=== PATIENT | female | born 1995 | race Caucasian/White ===

== ENCOUNTER 2023-06-24 10:28 | Outpatient (CLI) | payer BC, SELFPAY ==
[2023-06-24] VITALS (9 sets, daily range): BP systolic 98–124; BP diastolic 59–87; PULSE 82–100
[2023-06-24 11:23] LABS: Basophils Percent Auto 0.3 % (0.2-1.2); Eosinophils Percent Auto 0.4 % (0-4.4); Hematocrit 31.7 % (37.0-47.0); Hemoglobin 10.5 g/dL (12.0-15.0); Immature Granulocyte Absolute 0.05 K/mm3 (0.00-0.031); Immature Granulocyte Percent A 0.5 % (0-0.5); Lymphocytes Absolute Auto 2.05 K/mm3 (0.9-3.2); Lymphocytes Percent Auto 18.6 % (18.3-44.2); Mean Corpuscular HGB Conc 33.1 g/dl (32-36); Mean Corpuscular Hemoglobin 30.4 pg (26-34); Mean Corpuscular Volume 91.9 fl (80-100); Mean Platelet Volume 9.6 fl (7.4-10.4); Monocytes Absolute Auto 0.5 K/mm3 (0.1-0.6); Monocytes Percent Auto 4.3 % (2.6-8.5); Neutrophils Absolute Auto 8.4 K/mm3 (1.3-6.7); Neutrophils Percent Auto 75.9 % (45.5-73.1); Platelet Count Result 265 k/mm3 (150-375); Red Blood Count 3.45 M/mm3 (4.2-5.4); Red Cell Distribution Width 13.7 % (11.5-14.5)
--- NOTE | 2023-06-24 11:38 | PC.NURSE ---
1138: Gestational age not appropriate for NST. heart tone baseline 145.
[2023-06-24 11:39] LABS: Alanine Aminotransferase 11 U/L (6-35); Albumin Level 3.7 g/dL (3.5-5.1); Alkaline Phosphatase 71 U/L (38-126); Anion Gap 7 mmol/L (4-12); Aspartate Amino Transferase 14 U/L (14-36); Bilirubin,Total 0.4 mg/dL (0.2-1.3); Blood Urea Nitrogen 7 mg/dL (7-17); Calcium 9.2 mg/dL (8.4-10.2); Carbon Dioxide 21 mmol/L (22-30); Chloride 108 mmol/L (98-107); Estimated Glomerular Filt Rate > 60; Glucose 92 mg/dL (65-110); Potassium 3.8 mmol/L (3.4-5.0); Sodium 136 mmol/L (137-145); Uric Acid 5.1 mg/dL (2.5-7.5)
[2023-06-24 11:41] LABS: Appearance Urine Cloudy (Clear); Bacteria Urine 4+ /hpf; Bilirubin Urine Negative (Negative); Blood Urine Negative (Negative); Color Urine Yellow (Yellow); Glucose Urine UA Negative (Negative); Ketones Urine Trace mg/dL (Negative); Leukocyte Esterase Ur Trace LEU/UL (Negative); Need Manual Microscopic Reviewed; Nitrate Urine Negative (Negative); Non Pathogenic Casts 0-2; Protein Urine Negative (Negative); RBC Urine 0-2 /hpf (0-2); Specific Grav Ur 1.021 (1.001-1.035); Squamous Epithelial Cell Urine Few /hpf (Few); Urobilinogen Urine 0.2 mg/dL (<2.0); WBC Urine 21-50 /hpf (0-3)
[2023-06-24 11:42] LABS: Add Urine Microscopic? YES
[2023-06-24 12:09] LABS: Creatinine Urine 167.4 mg/dL; Total Protein Urine Random 7 mg/dL; Ur Ttl Prot Creatinine Ratio 0.04 mg/mg (0-0.20)
--- NOTE | 2023-06-24 12:17 | PC.NURSE ---
1217: RN notified CNM of patient's complaints of HERNANDEZ, and swelling. RN reported blood pressures and lab results. Orders to give 1 g of Tylenol for a HERNANDEZ and discharge patient home with instructions on when to return to the hospital.
[2023-06-24] MEDS: ACETAMINOPHEN 500 MG TABLET 1000 MG PO (12:31)
== END 2023-06-24 12:35 ==
LOC: ANHOBOP 10:34 → ANHOBPP 10:37
PROVIDERS: Advanced Practice Midwife; PCP Physician Assistant Medical; Visit Provider Obstetrics & Gynecology
DX: O13.9 Gestational [pregnancy-induced] hypertension without significant proteinuria, unspecified trimester (principal); Z3A.00 Weeks of gestation of pregnancy not specified
CPT/HCPCS: 36415; 80053; 81001; 82570; 84156; 84550; 85025; 87086; 99199; A9270

== ENCOUNTER 2023-10-05 00:01 | Inpatient (IN) | payer BC, SELFPAY ==
[2023-10-05] VITALS (108 sets, daily range): BP systolic 70–143; BP diastolic 43–119; PULSE 74–130; RESP 16–18; TEMP 36.5–36.8; O2SAT 94–100; BMI 42.3
--- OUTSIDE RECORDS SUMMARY | 2023-10-05 00:05 | XMS_ITS | Patient Health Record ---
Author Name Unknown Organization [facility] Planning Address [address] [place] [id number] Care Team Providers Care Welder Production Line Arc Name Role Phone Shefali Spann Primary Care Provider [phone] Reason For Referral No Information Medications Medication SIG (Take, Route, Frequency, Duration) Notes Start Date End Date Status Baby Aspirin Active Social History Tobacco Use: Social History Observation Description Date Details (start date - stop date) Never Smoker NA - NA Tobacco Use/Smoking Question Answer Notes Are you a nonsmoker Alcohol Screen (Audit-C) Question Answer Notes Did you have a drink containing alcohol in the p ast year? No Points 0 Interpretation Negative Plan Of Treatment No Information Insurance Providers Payer Name Payer Address Payer Phone Subscriber Number Group Number Insured Name Patient Relationship to Insured Coverage Start Date Coverage End Date [facility] [id number] [place] [phone] [id number] Bita Barroso Self - patient is the insured 2019
[2023-10-05 00:35] LABS: Basophils Percent Auto 0.2 % (0.2-1.2); Eosinophils Absolute Auto 0.1 K/mm3 (0-0.3); Eosinophils Percent Auto 0.6 % (0-4.4); Hematocrit 37.1 % (37.0-47.0); Hemoglobin 12.8 g/dL (12.0-15.0); Immature Granulocyte Absolute 0.06 K/mm3 (0.00-0.031); Immature Granulocyte Percent A 0.7 % (0-0.5); Lymphocytes Absolute Auto 2.31 K/mm3 (0.9-3.2); Lymphocytes Percent Auto 25.6 % (18.3-44.2); Mean Corpuscular HGB Conc 34.5 g/dl (32-36); Mean Corpuscular Hemoglobin 30.7 pg (26-34); Mean Platelet Volume 9.9 fl (7.4-10.4); Monocytes Absolute Auto 0.4 K/mm3 (0.1-0.6); Monocytes Percent Auto 4.6 % (2.6-8.5); Neutrophils Absolute Auto 6.2 K/mm3 (1.3-6.7); Neutrophils Percent Auto 68.3 % (45.5-73.1); Platelet Count Result 213 k/mm3 (150-375); Red Blood Count 4.17 M/mm3 (4.2-5.4)
[2023-10-05 00:43] LABS: Uric Acid 5.8 mg/dL (2.5-7.5)
[2023-10-05 00:47] LABS: Alanine Aminotransferase 14 U/L (6-35); Alkaline Phosphatase 141 U/L (38-126); Anion Gap 12 mmol/L (4-12); Aspartate Amino Transferase 22 U/L (14-36); Bilirubin,Total 0.2 mg/dL (0.2-1.3); Blood Urea Nitrogen 9 mg/dL (7-17); Calcium 9.5 mg/dL (8.4-10.2); Carbon Dioxide 18 mmol/L (22-30); Chloride 104 mmol/L (98-107); Estimated Glomerular Filt Rate > 60; Glucose 140 mg/dL (65-110); Potassium 3.7 mmol/L (3.4-5.0); Sodium 134 mmol/L (137-145)
[2023-10-05] MEDS: LACTATED RINGERS 1,000 ML 125 ML IV CONT ×2 (00:52→19:39)
[2023-10-05] MEDS: AMPICILLIN 2 GM/NS 100 ML 2 GM/100 ML BAG IVPB (00:53)
[2023-10-05] MEDS: miSOPROStol 25 MCG TABLET 50 MCG VAGINAL ×3 (00:56→11:02)
--- NOTE | 2023-10-05 00:58 | LDADM ---
This patient, Bita Barroso, was admitted to Labor/Delivery/Recovery 107 on 10/05/23 at 00:01. Plans for labor, pain management and were discussed with patient. Patient/family oriented to hospital policies and general routines including ID bracelet, bed and alarms, visiting hours, pain management, procedures, bathroom and other care routines, personal items, smoking policy, room service/diet and guest tray routines, infant security routines, and visiting hours. Patient/Family are encouraged to report perceived risks to care and to ask questions if they do not understand what they are told or what they should do. See OBIX for further documentation.
[2023-10-05 01:30] LABS: HIV 1/2 Ab P24 Ag Result Negative (Negative)
[2023-10-05 03:26] LABS: Rapid Plasma Reagin Non-Reactive (NonReactive)
[2023-10-05] MEDS: AMPICILLIN 1 GM/NS 50 ML 1 GM/50 ML BAG IVPB ×4 (04:50→17:25)
[2023-10-05 07:05] LABS: Glucose Point of Care 108 mg/dl (65-105)
[2023-10-05 09:51] LABS: Glucose Point of Care 102 mg/dl (65-105)
--- NOTE | 2023-10-05 10:58 | WPDOBADMIT ---
Obstetrics - Admit Note Admission Note: record reviewed. No pertinent additions to the history and/or any subsequent changes in the physical findings that are not consistent with the expected course of the were found. Additions to the history and/or subsequent changes in the physical findings follow. IOL, history of protein C deficiency, GDMA-2, SVE /-2, anticipate vaginal delivery
[2023-10-05 12:48] LABS: Glucose Point of Care 104 mg/dl (65-105)
--- NOTE | 2023-10-05 16:01 | WPDANESEPP ---
Anes - Eval Pre Procedure Procedure: labor epidural Date/Time: 10/05/23 16:01 Preop Diagnosis: labor pain Pre Op Diagnosis: IOL Patient Data Age: 28 Gender: F Height: 1.63 m Weight: 112 kg Last Vital Signs Temp 36.7 C 10/05/23 12:41 Pulse 112 H 10/05/23 15:01 Resp 18 10/05/23 12:41 BP 124/84 10/05/23 15:01 Pulse Ox 94 10/05/23 15:59 O2 Del Method Room Air 10/05/23 00:58 Allergies Allergy/AdvReac Type Severity Reaction Status Date / Time No Known Allergies Allergy Verified 09/21/23 12:10 Home Medications Medication Instructions Recorded Confirmed Type multivitamin 1 tablet PO DAILY 02/28/22 09/21/23 History aspirin 81 mg chewable tablet 81 mg PO DAILY 09/21/23 09/21/23 History ferrous sulfate 325 mg (65 mg 325 mg PO DAILY 09/21/23 09/21/23 History iron) tablet heparin (porcine) 10,000 unit/mL 10,000 unit subcut BID 09/21/23 09/21/23 History injection solution insulin NPH isoph U-100 human 100 13 unit subcut HS 09/21/23 09/21/23 History unit/mL subcutaneous cartridge Laboratory Tests 10/05/23 10/05/23 10/05/23 00:26 07:00 09:47 WBC 9.0 K/mm3 (4.5-10.0) RBC 4.17 L M/mm3 (4.2-5.4) Hgb 12.8 g/dL (12.0-15.0) Hct 37.1 % (37.0-47.0) MCV 89.0 fl (80-100) MCH 30.7 pg (26-34) MCHC 34.5 g/dl (32-36) RDW 14.0 % (11.5-14.5) Plt Count 213 k/mm3 (150-375) MPV 9.9 fl (7.4-10.4) Immature Gran % (Auto) 0.7 H % (0-0.5) Neut % (Auto) 68.3 % (45.5-73.1) Lymph % (Auto) 25.6 % (18.3-44.2) [place] % (Auto) 4.6 % (2.6-8.5) Eos % (Auto) 0.6 % (0-4.4) Baso % (Auto) 0.2 % (0.2-1.2) Lymph # (Auto) 2.31 K/mm3 (0.9-3.2) [place] # (Auto) 0.4 K/mm3 (0.1-0.6) Eos # (Auto) 0.1 K/mm3 (0-0.3) Baso # (Auto) 0.0 K/mm3 (0.0-0.1) Abs Immat Gran (auto) 0.06 H K/mm3 (0.00-0.031) Absolute Neuts (auto) 6.2 K/mm3 (1.3-6.7) Absolute Nucleated RBC 0.000 K/mm3 (0.0-0.012) Nucleated RBC % 0.0 % (0.0-0.2) Sodium 134 L mmol/L (137-145) Potassium 3.7 mmol/L (3.4-5.0) Chloride 104 mmol/L (98-107) Carbon Dioxide 18 L mmol/L (22-30) Anion Gap 12 mmol/L (4-12) BUN 9 mg/dL (7-17) Creatinine 0.70 mg/dL (0.7-1.0) Estim Creat Clear Calc Not Reportable Estimated GFR > 60 (59 - ) Glucose 140 H mg/dL (65-110) POC Capillary Glucose 108 H mg/dl 102 mg/dl (65-105) (65-105) Uric Acid 5.8 mg/dL (2.5-7.5) Calcium 9.5 mg/dL (8.4-10.2) Total Bilirubin 0.2 mg/dL (0.2-1.3) AST 22 U/L (14-36) ALT 14 U/L (6-35) Alkaline Phosphatase 141 H U/L (38-126) Total Protein 7.0 g/dL (6.3-8.2) Albumin 4.0 g/dL (3.5-5.1) RPR Non-reactive (NonReactive) HIV 1&2 Ab/P24 Ag 4thGn Negative (Negative) Blood Type A Positive Antibody Screen Negative 10/05/23 12:46 WBC RBC Hgb Hct MCV MCH MCHC RDW Plt Count MPV Immature Gran % (Auto) Neut % (Auto) Lymph % (Auto) [place] % (Auto) Eos % (Auto) Baso % (Auto) Lymph # (Auto) [place] # (Auto) Eos # (Auto) Baso # (Auto) Abs Immat Gran (auto) Absolute Neuts (auto) Absolute Nucleated RBC Nucleated RBC % Sodium Potassium Chloride Carbon Dioxide Anion Gap BUN Creatinine Estim Creat Clear Calc Estimated GFR Glucose POC Capillary Glucose 104 mg/dl (65-105) Uric Acid Calcium Total Bilirubin AST ALT Alkaline Phosp
[2023-10-05 16:23] LABS: INR 1.1; Prothrombin Time 14.8 Seconds (11.1-14.7)
[2023-10-05 16:24] LABS: Partial Thromboplastin Time 29.4 Seconds (22.3-36.8)
[2023-10-05] MEDS: FAMOTIDINE 20 MG/2 ML VIAL IV PUSH (18:21)
[2023-10-05] MEDS: ONDANSETRON INJ 4 MG/2 ML VIAL IV PUSH (18:21)
[2023-10-05] MEDS: ceFAZolin 2 GM/D5W 50 ML 2 GM/50 ML BAG 100 GM (18:35)
--- NOTE | 2023-10-05 18:36 | PM.IMHP ---
H&P: HPI History of Present Illness Date/Time: 10/05/23 18:36 Chief Complaint: Term Narrative: this patient is a 28-year-old multiparous female at 37 weeks gestation with protein C deficiency and gestational diabetes. She was induced. She is remote for delivery. This is a failed induction. We are unable to cause cervical change. She has severe pain. She is unable to get an epidural. Patient requested delivery. We are going to proceed with elective delivery after failed induction. The patient understands the details of the procedure. The procedure has been explained in detail. She understands the risks. She understands that injuries may occur that result in hospitalization, more surgery, and severe illness. She understands risk of hemorrhage and infection. She denies any chest pain or shortness of breath. She denies any nausea, vomiting, fever, chills. Review of Systems Review of Systems: All systems reviewed & are unremarkable except as noted in HPI and below Constitutional: Constitutional: Denies chills, Denies fatigue, Denies fever(s) and Denies weakness Eyes: Eyes: Denies blurry vision, Denies change in vision, Denies loss of peripheral vision, Denies loss of vision, Denies other visual disturbances and Denies eye pain ENT: Denies vertigo, Denies dizziness, Denies hearing loss, Denies mouth pain, Denies nasal obstruction, Denies neck mass and Denies neck pain Cardiovascular: Cardiovascular: Denies chest pain, Denies diaphoresis, Denies syncope, Denies leg edema and Denies dyspnea Respiratory: Respiratory: Denies chest congestion, Denies cough, Denies hemoptysis, Denies dyspnea and Denies wheezing Gastrointestinal: Gastrointestinal: Denies abdominal pain, Denies constipation, Denies diarrhea, Denies nausea and Denies vomiting Genitourinary: Genitourinary: Denies hematuria, Denies change in libido, Denies nocturia, Denies genital lesions, Denies flank pain and Denies urinary urgency Musculoskeletal: Musculoskeletal: Denies abnormal gait, Denies back pain, Denies myalgias, Denies arthralgias, Denies joint swelling, Denies muscle weakness and Denies neck pain Integumentary/Breasts: Skin/Breast: Denies swelling, Denies breast pain, Denies breast mass, Denies dry skin, Denies nipple discharge, Denies unusual bruising and Denies jaundice Neurologic: Denies Neuro-related abnormal movements, Denies Abnormal speech present, Denies abnormal gait, Denies behavioral changes, Denies confusion, Denies vertigo, Denies dizziness, Denies syncope, Denies loss of vision, Denies memory loss, Denies convulsions and Denies weakness Psychiatric: Psychiatric: Denies abnormal sleep pattern, Denies behavioral changes, Denies change in libido, Denies confusion, Denies depression, Denies anhedonia and Denies memory loss Endocrine: Endocrine: Reports no additional endocrine complaints, Denies change in libido and Denies fatigue Hematologic/Lymphatic: Hematologic/Lymphatic: Reports no additional hematologic/lymphatic complaints Allergic/Immunologic: Allergic/Immunologic: Reports no additional allergic/immunologic complaints and Denies wheezing PMFSH Past Medical History Medical History Anxiety Surgical History Surgical History History of hysteroscopy Family History Family History Father Malignant neoplasm of prostate Mother Protein C deficiency Other Cerebrovascular accident Diabetes mellitus Family history of kidney disease Hypertension Social History Social History Smoking status: Never smoker Second hand tobacco smoke exposure: No Alcohol intake: current Alcohol use details: rare Substance use: never Substance use type: marijuana Do You Feel Safe in your Home?
--- NOTE | 2023-10-05 19:16 | WPDHPUPDATE1 ---
History and Physical Update Update Date/Time: 10/05/23 19:16 History and Physical has been reviewed, including an updated exam of the patient. There are NO changes in the patient's condition. Risks, benefits, and alternatives have been discussed and questions answered. Patient agrees to proceed with procedure.
--- NOTE | 2023-10-05 19:17 | P.PCNOB_ITS ---
OB - Delivery Note Procedure Delivery date: 10/05/23 Pre-op diagnosis: Failed Induction of Labor and Other ( Elective primary ) Post-op Diagnosis: Same Procedure Performed: Primary Surgeon: Amor Gutierrez MD Anesthesia type: Spinal Description of Procedure/Findings: The patient was taken the operating room.? She was prepped and draped in dorsal supine position with a leftward tilt.? This was done after spinal anesthetic was applied.? A low-transverse skin incision was made and carried down till of the fascia with the knife.? The fascial incision was made with the knife.? The fascial incision was extended laterally with Cassidy scissors.? The fascia was tented upward superiorly and inferiorly the rectus muscles were dissected off bluntly.? The rectus muscles were the midline.? The preperitoneal fat and peritoneum were dissected open bluntly at the superior aspect of the rectus muscles.? The peritoneal incision was extended superior and inferior with good position of bladder.? The uterine incision was made with a scalpel down to the level of the amniotic cavity.? The amniotic cavity was entered bluntly.? The infant was delivered.? The cord was clamped and cut and the infant was handed off to waiting pediatric staff.? Cord bloods were obtained.? The placenta was removed manually.? The uterus was exteriorized.? The uterus was cleared of all clots, debris and membranes.? The uterus was closed in 0 Vicryl running lock fashion.? An imbricating over a was placed along the inc ision line as well.? The uterus was returned to the abdomen.? The gutters were cleared of all clots and debris.? The fascia was closed with 0 Vicryl running fashion.? The subcutaneous tissue was irrigated pinpoint bleeders were cauterized.? The skin was closed with subcuticular absorbable henrietta.? The skin incision line was covered with glue.? The patient tolerated the procedure well.? She has taken recovery room in stable condition.? Sponge lap and needle counts were correct x2.? Estimated Blood Loss: 740
[2023-10-05] MEDS: OXYTOCIN 30 UNITS/NS 500 ML 30 UNITS/500 ML BAG 125 UNITS IV CONT (21:55)
[2023-10-05] MEDS: diphenhydrAMINE HCl INJ 50 MG/ML VIAL 25 MG IV PUSH (21:58)
[2023-10-05 22:35] LABS: Rapid Plasma Reagin Non-Reactive (NonReactive)
[2023-10-05 23:01] LABS: Hepatitis B Surface Antigen Negative (Negative)
[2023-10-05 23:18] LABS: HIV 1/2 Ab P24 Ag Result Negative (Negative); Hepatitis C Virus Antibody Negative (Negative)
[2023-10-05] MEDS: KETOROLAC 15 MG/ML VIAL (*BKC) IV PUSH (23:24)
[2023-10-05] MEDS: ACETAMINOPHEN 325 MG TABLET 650 MG PO (23:25)
[2023-10-05] MEDS: DEXTROSE 5%/0.45% SOD CHL 1,000 ML 125 ML IV CONT (23:28)
[2023-10-06 02:00] VITALS: BP 132/80; PULSE 89; RESP 16; TEMP 37.2
[2023-10-06] MEDS: LORATADINE 10 MG TABLET PO (02:09)
[2023-10-06] MEDS: LORATADINE 10 MG TABLET (02:09)
[2023-10-06] MEDS: diphenhydrAMINE HCl INJ 50 MG/ML VIAL (02:09)
[2023-10-06] MEDS: LIDOCAINE 5% PATCH 1 PATCH TRANSDERM (03:30)
[2023-10-06 05:17] LABS: Basophils Percent Auto 0.2 % (0.2-1.2); Eosinophils Absolute Auto 0.1 K/mm3 (0-0.3); Eosinophils Percent Auto 0.4 % (0-4.4); Hemoglobin 10.4 g/dL (12.0-15.0); Immature Granulocyte Absolute 0.07 K/mm3 (0.00-0.031); Immature Granulocyte Percent A 0.6 % (0-0.5); Lymphocytes Absolute Auto 1.81 K/mm3 (0.9-3.2); Lymphocytes Percent Auto 14.8 % (18.3-44.2); Mean Corpuscular HGB Conc 33.5 g/dl (32-36); Mean Corpuscular Hemoglobin 30.1 pg (26-34); Mean Corpuscular Volume 89.6 fl (80-100); Mean Platelet Volume 10.3 fl (7.4-10.4); Monocytes Absolute Auto 0.6 K/mm3 (0.1-0.6); Monocytes Percent Auto 4.8 % (2.6-8.5); Neutrophils Absolute Auto 9.7 K/mm3 (1.3-6.7); Neutrophils Percent Auto 79.2 % (45.5-73.1); Platelet Count Result 164 k/mm3 (150-375); Red Blood Count 3.46 M/mm3 (4.2-5.4); Red Cell Distribution Width 13.9 % (11.5-14.5); White Blood Count 12.2 K/mm3 (4.5-10.0)
[2023-10-06] MEDS: diphenhydrAMINE HCl INJ 50 MG/ML VIAL IV PUSH (05:25)
[2023-10-06] MEDS: KETOROLAC 15 MG/ML VIAL (*BKC) IV PUSH ×2 (05:30→11:42)
[2023-10-06] MEDS: ACETAMINOPHEN 325 MG TABLET 650 MG PO ×4 (05:30→23:44)
--- NOTE | 2023-10-06 07:01 | PM.OBPNVD ---
OB - PN: Subj Subjective Date/time seen: 10/06/23 07:01 Interval history: pp day 1 primary section doing well voiding flatus present OB - PN: Obj Data Labs 10/06/23 04:28 10/05/23 00:26 Labs: Laboratory Results - last 24 hr 10/05/23 10/05/23 10/05/23 07:00 09:47 12:46 WBC RBC Hgb Hct MCV MCH MCHC RDW Plt Count MPV Immature Gran % (Auto) Neut % (Auto) Lymph % (Auto) [place] % (Auto) Eos % (Auto) Baso % (Auto) Lymph # (Auto) [place] # (Auto) Eos # (Auto) Baso # (Auto) Abs Immat Gran (auto) Absolute Neuts (auto) Absolute Nucleated RBC Nucleated RBC % PT INR APTT POC Capillary Glucose 108 H 102 104 RPR Hep Bs Antigen Hepatitis C Ab Screen HIV 1&2 Ab/P24 Ag 4thGn 10/05/23 10/05/23 10/05/23 16:00 22:02 22:09 WBC RBC Hgb Hct MCV MCH MCHC RDW Plt Count MPV Immature Gran % (Auto) Neut % (Auto) Lymph % (Auto) [place] % (Auto) Eos % (Auto) Baso % (Auto) Lymph # (Auto) [place] # (Auto) Eos # (Auto) Baso # (Auto) Abs Immat Gran (auto) Absolute Neuts (auto) Absolute Nucleated RBC Nucleated RBC % PT 14.8 H INR 1.1 APTT 29.4 POC Capillary Glucose RPR Non-reactive Hep Bs Antigen Negative Hepatitis C Ab Screen Negative HIV 1&2 Ab/P24 Ag 4thGn Cancelled 10/05/23 10/06/23 22:09 04:28 WBC 12.2 H RBC 3.46 L Hgb 10.4 L Hct 31.0 L MCV 89.6 MCH 30.1 MCHC 33.5 RDW 13.9 Plt Count 164 MPV 10.3 Immature Gran % (Auto) 0.6 H Neut % (Auto) 79.2 H Lymph % (Auto) 14.8 L [place] % (Auto) 4.8 Eos % (Auto) 0.4 Baso % (Auto) 0.2 Lymph # (Auto) 1.81 [place] # (Auto) 0.6 Eos # (Auto) 0.1 Baso # (Auto) 0.0 Abs Immat Gran (auto) 0.07 H Absolute Neuts (auto) 9.7 H Absolute Nucleated RBC 0.000 Nucleated RBC % 0.0 PT INR APTT POC Capillary Glucose RPR Hep Bs Antigen Hepatitis C Ab Screen HIV 1&2 Ab/P24 Ag 4thGn Negative OB - PN A/P Plan day: 1 Plan: routine care Time Spent With Patient Time: Total time spent is greater than 50% in coordination of care (as documented) at patient's floor/unit and/or counseling patient: Review of Systems Review of Systems: All systems reviewed & are unremarkable except as noted in HPI and below Exam Const: General: cooperative and healthy appearing Chest: Chest palpation & inspection: normal inspection of the chest Resp: Effort & Inspection: normal respiratory effort Cardio: Rate: regular rate Rhythm: regular rhythm GI: Other: incision CDI Back/Spine/Pelvis: Back: no CVA tenderness Skin: General skin exam: normal color
[2023-10-06 07:54] VITALS: BP 133/78; PULSE 114; RESP 20; TEMP 36.7; O2SAT 99
[2023-10-06] MEDS: SIMETHICONE 80 MG TAB.CHEW PO ×3 (08:15→17:36)
[2023-10-06] MEDS: DOCUSATE SODIUM 100 MG CAPSULE PO ×2 (08:15→17:37)
[2023-10-06] MEDS: MULTIVIT/MIN/PREN/FOL AC/IRON TABLET 1 TAB PO (08:15)
[2023-10-06] MEDS: ENOXAPARIN 40 MG/0.4 ML SYRINGE SUB-Q (08:16)
[2023-10-06 11:40] VITALS: BP 103/68; PULSE 97; RESP 20; TEMP 36.7
--- NOTE | 2023-10-06 17:27 | WPDANLDNPN2 ---
Anes-Prog Note L&D-Neuraxial Date/Time: 10/06/23 17:27 Neuraxial medications: intrathecal PF morphine Opiod-related complaints: pruritis moderate, treatment effective Patient feedback: Patient satisfied with post-operative pain management.
--- NOTE | 2023-10-06 17:27 | WPDANESPN ---
Anes - Prog Note Post-Op Date/Time: 10/06/23 17:27 Cardiovascular status: normal Respiratory status: normal Airway patency: baseline Mental status: baseline Post-Op hydration status: normal Vital Signs: Last Vital Signs Temp 36.7 C 10/06/23 11:40 Pulse 97 10/06/23 11:40 Resp 20 10/06/23 11:40 BP 103/68 10/06/23 11:40 Pulse Ox 99 10/06/23 07:54 O2 Del Method Room Air 10/05/23 21:30 Pain Score (VAS): 02/20 I/O: Intake & Output 10/06/23 10/06/23 10/06/23 07:59 15:59 23:59 Intake Total 1000 Output Total 1300 700 Balance -300 -700 Laboratory Tests 10/06/23 04:28 10/05/23 00:26 10/05/23 10/05/23 10/05/23 22:02 22:09 22:09 WBC RBC Hgb Hct MCV MCH MCHC RDW Plt Count MPV Immature Gran % (Auto) Neut % (Auto) Lymph % (Auto) [place] % (Auto) Eos % (Auto) Baso % (Auto) Lymph # (Auto) [place] # (Auto) Eos # (Auto) Baso # (Auto) Abs Immat Gran (auto) Absolute Neuts (auto) Absolute Nucleated RBC Nucleated RBC % RPR Non-reactive Hep Bs Antigen Negative Hepatitis C Ab Screen Negative HIV 1&2 Ab/P24 Ag 4thGn Cancelled Negative 10/06/23 04:28 WBC 12.2 H RBC 3.46 L Hgb 10.4 L Hct 31.0 L MCV 89.6 MCH 30.1 MCHC 33.5 RDW 13.9 Plt Count 164 MPV 10.3 Immature Gran % (Auto) 0.6 H Neut % (Auto) 79.2 H Lymph % (Auto) 14.8 L [place] % (Auto) 4.8 Eos % (Auto) 0.4 Baso % (Auto) 0.2 Lymph # (Auto) 1.81 [place] # (Auto) 0.6 Eos # (Auto) 0.1 Baso # (Auto) 0.0 Abs Immat Gran (auto) 0.07 H Absolute Neuts (auto) 9.7 H Absolute Nucleated RBC 0.000 Nucleated RBC % 0.0 RPR Hep Bs Antigen Hepatitis C Ab Screen HIV 1&2 Ab/P24 Ag 4thGn Post-procedural complaints: pruritis Patient Feedback: Patient satisfied with anesthetic care.
[2023-10-06] MEDS: HYDROCORTISONE 1% 30 GM CREAM 1 APPLIC TOPICAL ×2 (17:36→23:30)
[2023-10-06] MEDS: IBUPROFEN 600 MG TABLET PO ×2 (17:45→23:44)
[2023-10-06 21:15] VITALS: BP 112/72; PULSE 98; RESP 18; TEMP 36.6; O2SAT 97
[2023-10-07] MEDS: ACETAMINOPHEN 325 MG TABLET 650 MG PO ×2 (05:24→11:44)
[2023-10-07] MEDS: IBUPROFEN 600 MG TABLET PO ×2 (05:25→11:45)
[2023-10-07] MEDS: LIDOCAINE 5% PATCH 1 PATCH TRANSDERM (05:55)
[2023-10-07] MEDS: ENOXAPARIN 40 MG/0.4 ML SYRINGE SUB-Q (07:25)
[2023-10-07] MEDS: SIMETHICONE 80 MG TAB.CHEW PO ×2 (07:25→11:44)
[2023-10-07] MEDS: DOCUSATE SODIUM 100 MG CAPSULE PO (07:26)
[2023-10-07] MEDS: MULTIVIT/MIN/PREN/FOL AC/IRON TABLET 1 TAB PO (07:26)
[2023-10-07 07:50] VITALS: BP 129/83; PULSE 99; RESP 18; TEMP 36.6; O2SAT 100
--- NOTE | 2023-10-07 10:10 | PC.NURSE ---
Patient viewed the discharge video Mother & Baby Care, The First Two Weeks . Patient was given the opportunity and encouraged to ask questions. Patient verbalized understanding of information shared and has been given the mother/baby guide for home reference.
[2023-10-07] MEDS: HYDROCORTISONE 1% 30 GM CREAM 1 APPLIC TOPICAL (11:45)
--- NOTE | 2023-10-07 12:07 | P.PNOB_ITS ---
OB - PN: Subj Subjective Date/time seen: 10/07/23 12:07 Interval history: pp day 2 primary section doing well, pain well controlled voiding flatus present ready for discharge home today OB - PN: Obj Data Labs 10/06/23 04:28 10/05/23 00:26 OB - PN A/P Assessment and Plan (1) S/P : Code(s): Z98.891 - History of uterine scar from previous surgery Status: Acute Plan day: 2 Plan: routine care and discharge home Time Spent With Patient Time: Total time spent is greater than 50% in coordination of care (as documented) at patient's floor/unit and/or counseling patient: Review of Systems Review of Systems: All systems reviewed & are unremarkable except as noted in HPI and below Exam Const: General: comfortable and no acute distress [place] ation/consciousness: patient oriented x3 Resp: Effort & Inspection: normal respiratory effort
--- NOTE | 2023-10-07 12:14 | PM.OBDSVD ---
DS: Admitting Diagnosis Discharge Date 10/07/23 Admitting Diagnosis elective induction of labor DS: Discharge Diagnosis Discharge Diagnosis (1) S/P : Code(s): Z98.891 - History of uterine scar from previous surgery Status: Acute (2) Protein C deficiency: Code(s): D68.59 - Other primary thrombophilia Status: Acute OB - DS: Summary OB Procedures : None OB Procedures Intrapartum: Spontaneous Vag Delivery OB Procedures: : None Peripartum Data Procedures: Procedures Operation Date: 10/05/23 18:30 Actual Procedure Side Surgeon p Section Not Applicable Amor Gutierrez MD Time Spent with Patient Time attestation: Total time spent providing and/or coordinating discharge services: Discharge Plan Discharge Attending physician on discharge: Philip Merchant Consulting providers: Lillie Larkin Discharging Clinician: Philip Merchant Patient Disposition: Home, Self-Care Activity: may shower, may drive after 2 weeks, as tolerated and pelvic rest Diet: as tolerated Patient Instructions: Antibiotic Form Stand Alone Forms: General Discharge Information Follow-up/Referrals: Lillie Larkin CNM [Certified Nurse Customer Service Supervisor] - 1 Week Discharge Medications: New hydrocodone-acetaminophen 5-325 mg Tablet 1 tablet PO Q3H PRN (Reason: Breakthrough Pain Rated 4-6) Qty: 18 0RF enoxaparin [Lovenox] 40 mg/0.4 mL Syringe 40 mg subcut DAILY@0600 42 Days Qty: 42 0RF ibuprofen 600 mg Tablet 600 mg PO Q6H Qty: 30 0RF docusate sodium 100 mg Capsule 100 mg PO BID Qty: 60 0RF Continued multivitamin Tablet 1 tablet PO DAILY ferrous sulfate 325 mg (65 mg iron) Tablet 325 mg PO DAILY Discontinued aspirin 81 mg Tablet,Chewable 81 mg PO DAILY heparin (porcine) 10,000 unit/mL Solution 10,000 unit SUBCUT BID Novolin N NPH U-100 Insulin 100 unit/mL Cartridge 13 unit SUBCUT HS Date of admission: 10/05/23 00:01 Primary Care Provider: Lexus Jensen Admitting Provider: Amor Gutierrez Attending physician on admission: Amor Gutierrez Condition: Stable
[2023-10-08 15:36] VITALS: BP 137/81; PULSE 99; RESP 18; TEMP 37.1; O2SAT 100
== END 2023-10-07 13:46 | disposition home or self-care (01) | DRG 787 ==
LOC: ANHLDR 00:08 → ANHOB2 10-07 12:14 → ANHLDR 10-08 08:26 → ANHOB2 10-08 08:26
PROVIDERS: Nurse Anesthetist, Certified Registered; Admitting Provider Obstetrics & Gynecology; PCP Physician Assistant Medical; Visit Provider Obstetrics & Gynecology
PROC: 10D00Z1 Extraction of Products of Conception, Low, Open Approach (ICD-10-PCS; CPT 59514; principal; 2023-10-05 18:30)
DX: O99.12 Other diseases of the blood and blood-forming organs and certain disorders involving the immune mechanism complicating childbirth (principal); D68.59 Other primary thrombophilia; Z37.0 Single live birth; Z3A.39 39 weeks gestation of pregnancy; O24.429 Gestational diabetes mellitus in childbirth, unspecified control; O77.0 Labor and delivery complicated by meconium in amniotic fluid; O61.9 Failed induction of labor, unspecified
CPT/HCPCS: 36415; 80053; 82948; 84550; 85025; 85610; 85730; 86592; 86703; 86803; 86850; 86900; 86901; 87340; A9270; G0432; J0290; J0690; J1200; J1650; J1885; J2274; J2405; J2590; J2795; J7120